=== PATIENT | male | born 1950 | race Caucasian/White ===

== ENCOUNTER 2016-08-15 20:21 | Inpatient (IN) | payer OTHER ==
[~2016-08-15] VITALS: Ht 190.5 cm; Wt 117.4 kg
[2016-08-15] MEDS ORDERED: SODIUM CHLORIDE 0.9% 1,000ML IVBOLUS ONE (21:00)
[2016-08-15 21:33] LABS: HEMOGLOBIN 16.5 g/dL (13.7-18.0)
[2016-08-15 21:42] LABS: ASPARTATE AMINO TRANSFERASE 32 U/L (15-37); BLOOD UREA NITROGEN 60 mg/dL (7-18)
[2016-08-15] MEDS ORDERED: SODIUM CHLORIDE FLUSH 10ML SYR IVF ONE (22:00)
[2016-08-15] MEDS ORDERED: EPLE25TA4 PO (22:16)
[2016-08-15] MEDS ORDERED: ATOR20TA PO (22:16)
[2016-08-15] MEDS ORDERED: LOSA25TA5 PO (22:16)
[2016-08-15] MEDS ORDERED: WARF5TAB PO (22:16)
[2016-08-15] MEDS ORDERED: BISO10TA10 PO (22:16)
[2016-08-15] MEDS ORDERED: CEFTRIAXONE PMX 2GM/50ML 50 ML IV ONE (22:30)
[2016-08-15] MEDS ORDERED: VANCOMYCIN PER PHARMACY MC PRN ×2 (22:30→23:30)
[2016-08-15] MEDS ORDERED: CEFTRIAXONE PMX 2GM/50ML 50 ML ONE (22:59)
[2016-08-15] MEDS ORDERED: VANCOMYCIN 2,000 MG in SODIUM CHLORIDE 0.9% 500 ML IV ONE (23:00)
[2016-08-15] MEDS ORDERED: PHARMACOKINETIC MONITORING MC PRN (23:30)
[2016-08-15] MEDS ORDERED: ACETAMINOPHEN 325 MG TABLET PO PRN (23:30)
[2016-08-15] MEDS ORDERED: POLYETHYLENE GLYCOL 17 GM PACKET PO PRN (23:30)
[2016-08-15] MEDS ORDERED: CEFTRIAXONE PMX 1GM/50ML 50 ML IV SCH (23:30)
[2016-08-15] MEDS ORDERED: ONDANSETRON 2MG/ML, 2ML IVP PRN (23:30)
[2016-08-15] MEDS ORDERED: ATORVASTATIN 20 MG TABLET PO SCH (23:30)
[2016-08-15] MEDS ORDERED: BISACODYL 10 MG SUPP PR PRN (23:30)
[2016-08-16] VITALS (13 sets, daily range): BP systolic 99–138; BP diastolic 57–86
[2016-08-16] MEDS: SODIUM CHLORIDE FLUSH 10ML SYR IVF SCH ×3 (02:12→20:36)
[2016-08-16 05:27] LABS: HEMOGLOBIN 14.4 g/dL (13.7-18.0)
[2016-08-16 05:30] LABS: BLOOD UREA NITROGEN 53 mg/dL (7-18)
[2016-08-16 05:37] LABS: ASPARTATE AMINO TRANSFERASE 20 U/L (15-37)
[2016-08-16] MEDS ORDERED: GADOBUTROL 10 MMOL/10 ML PFS ONE (08:13)
[2016-08-16] MEDS ORDERED: LOSARTAN 25MG TABLET PO SCH (09:00)
[2016-08-16] MEDS ORDERED: BISOPROLOL FUMARATE 10 MG PO SCH (09:00)
[2016-08-16] MEDS: SENNA/DOCUSATE TABLET PO SCH (09:00)
[2016-08-16] MEDS: AMPICILLIN/SULBACTAM 3 GM in SODIUM CHLORIDE 0.9% 100 ML IV SCH ×2 (11:36→20:33)
[2016-08-16] MEDS ORDERED: ATOR40TA78 PO (13:34)
[2016-08-16] MEDS ORDERED: ALLO300T PO (13:34)
[2016-08-16] MEDS: LOSARTAN 25MG TABLET PO SCH ×2 (14:01→14:03)
[2016-08-16] MEDS: VANCOMYCIN 2,000 MG in SODIUM CHLORIDE 0.9% 500 ML IV SCH (17:28)
[2016-08-17] VITALS (7 sets, daily range): BP systolic 107–151; BP diastolic 67–99
[2016-08-17] MEDS: AMPICILLIN/SULBACTAM 3 GM in SODIUM CHLORIDE 0.9% 100 ML IV SCH ×4 (02:10→19:48)
[2016-08-17] MEDS: VANCOMYCIN 2,000 MG in SODIUM CHLORIDE 0.9% 500 ML IV SCH ×2 (04:03→16:20)
[2016-08-17] MEDS: SODIUM CHLORIDE FLUSH 10ML SYR IVF SCH ×2 (09:00→20:45)
[2016-08-17] MEDS ORDERED: FENTANYL PF 250 MCG/5ML ONE (11:57)
[2016-08-17] MEDS ORDERED: MIDAZOLAM 1 MG/ML, 2ML ONE (11:57)
[2016-08-17] MEDS ORDERED: PROPOFOL 10 MG/ML, 20ML ONE (12:11)
[2016-08-17] MEDS ORDERED: PROPOFOL 10 MG/ML, 50ML ONE (12:11)
[2016-08-17] MEDS ORDERED: LIDOCAINE/PF 1%, 30ML ONE (12:21)
[2016-08-17] MEDS ORDERED: MEPERIDINE/PF 25MG/0.5ML IVPush PRN (12:30)
[2016-08-17] MEDS ORDERED: LABETALOL 5MG/ML, 20ML IV PRN (12:30)
[2016-08-17] MEDS ORDERED: PROMETHAZINE 25 MG/ML, 1ML IV PRN (12:30)
[2016-08-17] MEDS ORDERED: OXYcodone 5 MG/5 ML ORAL.SOL UDC PO PRN (12:30)
[2016-08-17] MEDS ORDERED: HYDROmorphone 1 MG/ML, 1ML IV PRN (12:30)
[2016-08-17] MEDS ORDERED: ONDANSETRON 2MG/ML, 2ML IVPush PRN (12:30)
[2016-08-17] MEDS ORDERED: ACETAMINOPHEN 325 MG TABLET PO PRN (12:30)
[2016-08-17] MEDS ORDERED: MIDAZOLAM 1 MG/ML, 2ML IV PRN (12:30)
[2016-08-17] MEDS ORDERED: METOCLOPRAMIDE 5 MG/ML, 2ML IV PRN (12:30)
[2016-08-17] MEDS ORDERED: FENTANYL PF 100 MCG/2ML IV PRN (12:30)
[2016-08-17] MEDS ORDERED: hydrALAzine 20 MG/ML, 1ML IV PRN (12:30)
[2016-08-17] MEDS ORDERED: LIDOCAINE 1%, 20ML INFIL ONE (12:40)
[2016-08-17] MEDS ORDERED: ACETAMINOPHEN 650 MG/20.3 ML UDC ONE (13:30)
[2016-08-17] MEDS ORDERED: ACETAMINOPHEN 325 MG TABLET ONE (13:30)
[2016-08-17] MEDS ORDERED: OXYcodone 5 MG/5 ML ORAL.SOL UDC ONE (13:30)
[2016-08-17] MEDS: LOSARTAN 25MG TABLET PO SCH ×2 (15:00→20:44)
[2016-08-17] MEDS: ATORVASTATIN 40 MG TABLET PO SCH (15:00)
[2016-08-17] MEDS: SENNA/DOCUSATE TABLET PO SCH (15:00)
[2016-08-17] MEDS: ALLOPURINOL 300 MG TABLET PO SCH (15:00)
[2016-08-17] MEDS: MORPHINE SULFATE 4 MG/ML, 1ML IVPush PRN (19:48)
[2016-08-18] MEDS: AMPICILLIN/SULBACTAM 3 GM in SODIUM CHLORIDE 0.9% 100 ML IV SCH ×4 (01:34→20:29)
[2016-08-18 02:19] VITALS: BP 113/69
[2016-08-18] MEDS: MORPHINE SULFATE 4 MG/ML, 1ML IVPush PRN ×2 (03:59→08:56)
[2016-08-18 07:00] VITALS: BP 122/78
[2016-08-18] MEDS: SODIUM CHLORIDE FLUSH 10ML SYR IVF SCH ×2 (09:00→20:29)
[2016-08-18] MEDS: OXYcodone/APAP 5/325MG TABLET PO PRN ×2 (12:19→16:22)
[2016-08-18 14:43] VITALS: BP 136/88
[2016-08-18] MEDS: ALLOPURINOL 300 MG TABLET PO SCH (14:57)
[2016-08-18] MEDS: SENNA/DOCUSATE TABLET PO SCH (15:00)
[2016-08-18] MEDS: ATORVASTATIN 40 MG TABLET PO SCH (15:00)
[2016-08-18] MEDS: LOSARTAN 25MG TABLET PO SCH ×2 (15:00→20:29)
[2016-08-18] MEDS ORDERED: VANCOMYCIN 2,000 MG in SODIUM CHLORIDE 0.9% 500 ML IV SCH (16:00)
[2016-08-18 19:49] VITALS: BP 129/89
[2016-08-19] MEDS: MORPHINE SULFATE 4 MG/ML, 1ML IVPush PRN ×3 (01:49→17:51)
[2016-08-19] MEDS: AMPICILLIN/SULBACTAM 3 GM in SODIUM CHLORIDE 0.9% 100 ML IV SCH ×3 (01:49→15:10)
[2016-08-19 01:50] VITALS: BP 135/87
[2016-08-19 06:58] VITALS: BP 145/84
[2016-08-19] MEDS: OXYcodone/APAP 5/325MG TABLET PO PRN ×3 (08:34→23:57)
[2016-08-19] MEDS: LOSARTAN 25MG TABLET PO SCH ×2 (08:35→21:00)
[2016-08-19] MEDS: SODIUM CHLORIDE FLUSH 10ML SYR IVF SCH ×2 (08:35→21:00)
[2016-08-19] MEDS: ATORVASTATIN 40 MG TABLET PO SCH (08:35)
[2016-08-19] MEDS: ALLOPURINOL 300 MG TABLET PO SCH (08:36)
[2016-08-19] MEDS: SENNA/DOCUSATE TABLET PO SCH (08:36)
[2016-08-19 13:24] VITALS: BP 109/69
[2016-08-19] MEDS ORDERED: ERTAPENEM 1 GM in SODIUM CHLORIDE 0.9% 50 ML IV SCH (15:30)
[2016-08-19 16:58] LABS: C-REACTIVE PROTEIN, QUANT 4.6 mg/dL (0.02-0.49)
[2016-08-19] MEDS ORDERED: WARFARIN 5 MG TABLET PO-COUM SCH (18:00)
[2016-08-19] MEDS ORDERED: MORP4VIA IVPush (18:20)
[2016-08-19] MEDS ORDERED: ERTA1VIA IV (18:20)
[2016-08-19] MEDS ORDERED: POLY17PO5 PO (18:20)
[2016-08-19] MEDS ORDERED: OXYC1TAB7 PO (18:20)
[2016-08-19] MEDS ORDERED: SENN1TAB7 PO (18:20)
[2016-08-19 19:13] VITALS: BP 129/72
[2016-08-20 02:00] VITALS: BP 154/91
[2016-08-20 04:45] LABS: ASPARTATE AMINO TRANSFERASE 34 U/L (15-37); BLOOD UREA NITROGEN 28 mg/dL (7-18)
[2016-08-20 06:28] VITALS: BP 121/77
[2016-08-20] MEDS: SODIUM CHLORIDE FLUSH 10ML SYR IVF SCH (07:33)
[2016-08-20] MEDS: LOSARTAN 25MG TABLET PO SCH (07:33)
[2016-08-20] MEDS: ATORVASTATIN 40 MG TABLET PO SCH (07:33)
[2016-08-20] MEDS: SENNA/DOCUSATE TABLET PO SCH (07:34)
[2016-08-20] MEDS: ALLOPURINOL 300 MG TABLET PO SCH (07:34)
[2016-08-20] MEDS: OXYcodone/APAP 5/325MG TABLET PO PRN (08:09)
== END 2016-08-20 08:27 | disposition designated cancer center or children's hospital (05) | DRG 503 ==
LOC: ED 22:32 → EDIP 22:33 → ED 22:43 → 3NW 08-16 00:30
PROVIDERS: ADMIT Internal Medicine; ATTEND Internal Medicine
PROC: 30233L1 Transfusion of Nonautologous Fresh Plasma into Peripheral Vein, Percutaneous Approach (ICD-10-PCS; 2016-08-15)
PROC: 30233K1 Transfusion of Nonautologous Frozen Plasma into Peripheral Vein, Percutaneous Approach (ICD-10-PCS; 2016-08-15)
PROC: 0Y6U0Z0 Detachment at Left 3rd Toe, Complete, Open Approach (ICD-10-PCS; principal; 2016-08-17 11:30)
PROC: 02HV33Z Insertion of Infusion Device into Superior Vena Cava, Percutaneous Approach (ICD-10-PCS; 2016-08-18)
PROC: B548ZZA Ultrasonography of Superior Vena Cava, Guidance (ICD-10-PCS; 2016-08-18)
DX: M86.172 Other acute osteomyelitis, left ankle and foot (principal); N17.0 Acute kidney failure with tubular necrosis; D68.69 Other thrombophilia; L02.612 Cutaneous abscess of left foot; I48.92 Unspecified atrial flutter; I48.2 Chronic atrial fibrillation; E78.5 Hyperlipidemia, unspecified; E78.00 Pure hypercholesterolemia, unspecified; D72.829 Elevated white blood cell count, unspecified; Z95.1 Presence of aortocoronary bypass graft; Z96.653 Presence of artificial knee joint, bilateral; N18.2 Chronic kidney disease, stage 2 (mild); I12.9 Hypertensive chronic kidney disease with stage 1 through stage 4 chronic kidney disease, or unspecified chronic kidney disease; L03.032 Cellulitis of left toe; Z95.0 Presence of cardiac pacemaker; M10.9 Gout, unspecified; B95.61 Methicillin susceptible Staphylococcus aureus infection as the cause of diseases classified elsewhere; Z91.013 Allergy to seafood; Z88.8 Allergy status to other drugs, medicaments and biological substances; Z80.3 Family history of malignant neoplasm of breast; Z79.01 Long term (current) use of anticoagulants; I25.10 Atherosclerotic heart disease of native coronary artery without angina pectoris; G60.8 Other hereditary and idiopathic neuropathies
CPT/HCPCS: 36415; 36569; 76937; 77001; 80053; 80202; 83516; 84550; 85025; 85610; 85651; 85730; 86038; 86140; 86160; 86200; 86225; 86235; 86255; 86256; 86376; 86431; 86850; 86900; 87040; 87070; 87075; 87077; 87147; 87176; 87186; 87205; 88300; 93005; 93306; 96361; 96365; 96366; 96368; A9585; J0295; J0696; J1335; J2250; J2704; J3010; J3370; J3490; C1751; J7030; J7040; P9017

== ENCOUNTER → 2017-03-02 | Outpatient (CLI) | payer MEDICARE ==
[~2017-03-02] MED LIST: ALLO300T PO; ATOR20TA PO; ATOR40TA78 PO; BISO10TA10 PO; EPLE25TA4 PO; ERTA1VIA IV; LOSA25TA5 PO; MORP4VIA IVPush; OXYC1TAB7 PO; POLY17PO5 PO; SENN1TAB7 PO; WARF5TAB PO
== END | disposition home or self-care (01) ==
LOC: CVU 14:35
PROVIDERS: ATTEND Internal Medicine Cardiovascular Disease
DX: I50.9 Heart failure, unspecified (principal)
CPT/HCPCS: 93306